=== PATIENT | female | born 1975 | race Caucasian/White ===

== ENCOUNTER 2021-04-06 10:53 | Emergency (ER) | payer OTHER ==
[~2021-04-06] VITALS: Ht 160 cm; Wt 86.2 kg
[~2021-04-06 10:53] MED LIST: SYNTHROID200 MCG
[2021-04-06] MEDS ORDERED: SYNTHROID75 MCG PO (11:13)
[2021-04-06] MEDS ORDERED: VITAMIN D31250 MCG PO (11:13)
[2021-04-06] MEDS ORDERED: SYNTHROID88 MCG PO (11:13)
[2021-04-06] MEDS ORDERED: FENOFIBRIC ACI135 MG PO (11:14)
[2021-04-06] MEDS ORDERED: METFORMIN HCL500 M1 PO (11:14)
[2021-04-06] MEDS ORDERED: LOSARTAN POTASS50 MG PO (11:14)
[2021-04-06] MEDS ORDERED: HYDROCHLOROTH12.5 MG PO (11:14)
== END 2021-04-06 18:43 | disposition home or self-care (01) ==
LOC: ER 10:53
DX: N83.292 Other ovarian cyst, left side (principal); R10.2 Pelvic and perineal pain